=== PATIENT | female | born 1940 | race Caucasian/White ===

== ENCOUNTER 2016-06-28 09:37 | Emergency (ER) | payer MEDICARE, OTHER ==
[2016-06-28] MEDS ORDERED: DUONEB 0.5-3 MG/3 ml Neb IH ONE (09:39)
[2016-06-28] MEDS ORDERED: Sodium Chloride 0.9% 1000 ML 1,000 ML IV SCH (09:45)
--- NOTE | 2016-06-28 09:48 | ERPHSYRPT ---
- History of Present Illness Time Seen by Provider: 06/28/16 09:37 Source: patient Exam Limitations: clinical condition Physician History: PATIENT WITH HISTORY OF COPD,COMPLAINS OF PROGRESSIVE DYSPNEA, PRODUCTIVE COUGH , MARKED EXCERTIONAL DYSPNEA AND CHEST PAIN FOR THE PAST 3 DAYS. PATIENT DENIES CHEST PAIN UPON ARRIVAL. DENIES FEVER OR CHILLS. Timing/Duration: day(s) Activities at Onset: activity Severity of Dyspnea-Max: severe Severity of Dyspnea-Current: severe Possible Cause: occasional episodes Modifying Factors: Improves With: activity, coughing Associated Symptoms: cough, chest pain/discomfort, productive cough International travel in last 2 weeks: No Allergies/Adverse Reactions: Sulfa (Sulfonamide Antibiotics) Allergy (Intermediate, Verified 06/28/16 09:59) Home Medications: Aspirin 81 gm Chew [Baby Aspirin 81 mg Chew] 81 mg PO DAILY 06/28/16 [ History] Duloxetine HCl 30 mg [Cymbalta 30 MG Capsule] 30 mg PO DAILY 06/28/16 [ History] Isosorbide Mononitrate 30 mg [Imdur 30 MG] 30 mg PO DAILY 06/28/16 [History ] Metoprolol Succinate 50 mg [Toprol Xl 50 MG] 50 mg PO BID 06/28/16 [ History] PANTOPRAZOLE 40 mg Tablet [Protonix 40MG Tablet] 40 mg PO DAILY 06/28/16 [ History] - Review of Systems Constitutional: No Fever, No Chills Eyes: No Symptoms Ears, Nose, & Throat: No Symptoms Respiratory: Cough, Dyspnea, Dyspnea on Exertion (BELCHER) Cardiac: Chest Pain, No Edema, No Syncope Abdominal/Gastrointestinal: No Symptoms, No Abdominal Pain, No Nausea, No Vomiting, No Diarrhea Genitourinary Symptoms: No Symptoms, No Dysuria Musculoskeletal: No Symptoms, No Back Pain, No Neck Pain Skin: No Symptoms, No Rash Neurological: No Dizziness, No Focal Weakness, No Sensory Changes Psychological: No Symptoms Endocrine: No Symptoms All Other Systems: Reviewed and Negative - Nursing Vital Signs Nursing Vital Signs: Initial Vital Signs Temperature 98.1 F Temperature Source Axillary Pulse Rate 92 Respiratory Rate 32 Blood Pressure [] 153/89 Pain Intensity 0 - Physical Exam General Appearance: severe distress, alert Eye Exam: PERRL/EOMI Neck Exam: normal inspection, supple Respiratory Exam: diminished breath sounds Cardiovascular/Chest Exam: normal heart sounds, regular rate/rhythm Abdominal/Gastrointestinal Exam: soft, normal bowel sounds Extremity Exam: non-tender, normal range of motion, pedal edema (+1) Peripheral Pulses Exam: carotid (R): 2+, carotid (L): 2+, femoral (R): 2+, femoral (L): 2+, dorsalis-pedis (R): 2+, dorsalis-pedis (L): 2+ Neurologic Exam: alert, oriented x 3 Skin Exam: normal color, warm Lymphatic Exam: adenopathy SpO2: 88 Oxygen Delivery: Room Air - Course EKG Interpreted by Me: RATE, NORMAL AXIS, Non-specific ST Changes (LATERALLY) - Radiology Exams Chest X-ray Interpretation: Discussed w/ radiologist (RIGHT INFRAHILAR INFILTRATES) - CT Exams Chest CT Interpretation: Discussed w/radiologist (DIFFUSE PULMONARY EMBOLI) Ordered Tests: Active Orders 24 hr Category Date Time Status EKG-ER Only STAT Care 06/28/16 09:39 Active IV Insertion-2nd Peripheral STAT Care 06/28/16 12:02 Active Oxygen-ED Only NON-REBREATHER 100% Care 06/28/16 09:39 Active CHEST 1 VIEW (PORTABLE) Routine Exams 06/28/16 10:01 Completed CHEST WITH CONTRAST [CT] Stat Exams 06/28/16 10:44 Completed ARTERIAL BLOOD GASES Urgent Lab 06/28/16 10:00 Completed BLOOD CULTURE Stat Lab 06/28/16 09:45 Received CBC W DIFF Stat Lab 06/28/16 09:45 Completed CMP Stat Lab 06/28/16 09:45 Completed D-DIMER QUANTITATION Stat Lab 06/28/16 09:45 Completed Lactic Acid Urgent Lab 06/28/16 10:00 Completed MAGNESIUM Stat Lab 06/28/16 09:45 Completed Manual Differential NC Stat Lab 06/28/16 09:45 Completed NT PRO BNP Stat Lab 06/28/16 09:45 Completed TROPONIN Stat Lab 06/28/16 09:45 Completed Respiratory Nebulizer CONTINUOUS RT 06/28/16 09:54 Completed Respiratory Nebulizer STAT RT 06/28/16 09:41 Completed Medication Summary Generic Name Dose Route Start Last Admin Trade Name Freq PRN Reason Stop Dose Admin Sodium Chloride 1,000 mls @ 20 mls/hr 06/28/16 09:45 06/28/16 10:12 Sodium Chloride 0.9% 1000 Ml IV 07/28/16 09:44 20 mls/hr .Q24H ARASELI Administration Ceftriaxone Sodium/Dextrose 50 mls @ 100 mls/hr 06/28/16 10:45 06/28/16 10:51 Rocephin 2 Gm-D5w 50ml Bag IV 07/28/16 10:44 100 mls/hr Q24H ARASELI Administration Discontinued Medications Generic Name Dose Route Start Last Admin Trade Name Yumiko PRN Reason Stop Dose Admin Albuterol Sulfate 10 mg 06/28/16 09:55 06/28/16 09:56 Proventil Solution 2.5 Mg/0.5 Ml IH 06/28/16 09:56 10 mg STAT ONE Administration Albuterol/Ipratropium 3 ml 06/28/16 09:39 06/28/16 09:51 Duoneb 0.5-3 Mg/3 Ml Neb IH 06/28/16 09:40 3 ml STAT ONE Administration Enoxaparin Sodium 100 mg 06/28/16 12:04 06/28/16 12:33 Enoxaparin Sodium SQ 06/28/16 12:05 100 mg STAT ONE Administration Enoxaparin Sodium Confirm 06/28/16 12:08 Enoxaparin Sodium Administered 06/28/16 12:09 Dose 120 mg SQ .STK-MED ONE Furosemide 40 mg 06/28/16 12:12 06/28/16 12:33 Lasix 40 Mg/4 Ml IV 06/28/16 12:13 40 mg STAT ONE Administration Furosemide Confirm 06/28/16 12:19 Lasix 40 Mg/4 Ml Administered 06/28/16 12:20 Dose 40 mg .ROUTE .STK-MED ONE Azithromycin 250 mls @ 125 mls/hr 06/28/16 10:39 06/28/16 11:37 Zithromax 500 Mg/ 250 Ml Nacl Premix IV 06/28/16 12:38 125 mls/hr STAT ONE Administration Azithromycin Confirm 06/28/16 10:44 Zithromax 500 Mg/ 250 Ml Nacl Premix Administered 06/28/16 10:45 Dose 250 mls @ ud IV .STK-MED ONE Ceftriaxone Sodium/Dextrose Confirm 06/28/16 10:44 Rocephin 2 Gm-D5w 50ml Bag Administered 06/28/16 10:45 Dose 50 mls @ ud IV .STK-MED ONE Methylprednisolone Sodium Succinate 125 mg 06/28/16 11:05 06/28/16 11:37 Solu-Medrol 125 Mg IV 06/28/16 11:06 125 mg STAT ONE Administration Methylprednisolone Sodium Succinate Confirm 06/28/16 11:25 Solu-Medrol 125 Mg Administered 06/28/16 11:26 Dose 125 mg .ROUTE .STK-MED ONE Lab/Rad Data: Laboratory Result Diagrams 06/28/16 09:45 06/28/16 09:45 Laboratory Results 06/28/16 06/28/16 06/28/16 Range/Units 10:00 09:45 09:45 WBC (4.0-10.5) K/mm3 RBC (4.1-5.4) M/mm3 Hgb (12.0-16.0) gm/dl Hct (35-47) % MCV (78-100) fl MCH (26-32) pg MCHC (32-36) g/dl RDW (11.5-14.0) % Plt Count (150-450) K/mm3 MPV (6-9.5) fl Segmented Neutrophils (36.0-66.0) % Lymphocytes (Manual) (24-44) % Monocytes (Manual) (0.0-12.0) % Differential Comment Platelet Estimate (NORMAL) Polychromasia Hypochromasia Poikilocytosis Anisocytosis Microcytosis D-Dimer 2.421 H* (0.00-0.49) mg/L Puncture Site LEFT RADIAL pCO2 34 L (35-45) mmHg pO2 65 L (75-100) mmHg Base Excess -3.2 L (-2.0-2.0) O2 Saturation 91.4 L (94-100) g/dF ABG pH 7.40 (7.35-7.45) ABG HCO3 21.1 L (22-28) ABG O2 Sat (Measured) 93.9 L (95-100) % Claude Test YES A-a Gradient 178 a/A Ratio 0.27 Hemoglobin 8.7 Carboxyhemoglobin 1.6 (0.0-6.9) % THgb Methemoglobin 1.1 L (1.4-1.5) % Temperature 37.0 C POC O2 Flow Rate 40 % Sodium 142 (136-145) mEq/L Potassium 3.0 L 3.4 L (3.5-5.1) mEq/L Chloride 108 H (98-107) mEq/L Carbon Dioxide 17.8 L (21-32) mEq/L Anion Gap 19.9 H (5-15) MEQ/L BUN 14 (9-20) mg/dL Creatinine 0.98 (0.55-1.30) mg/dl Estimated GFR 59 ML/MIN Glucose 140 H (70-110) MG/DL Lactic Acid 2.9 H (0.4-2.0) Calcium 8.4 L (8.5-10.1) mg/dL Magnesium 1.7 L (1.8-2.4) mg/dL Total Bilirubin 0.5 (0.2-1.0) mg/dL AST 32 (15-37) U/L ALT 13 (12-78) U/L Alkaline Phosphatase 123 H (46-116) U/L Troponin I 0.047 (0.000-0.056) ng/ml NT-Pro-B Natriuret Pep 4544 H (0-125) pg/ml Serum Total Protein 7.0 (6.4-8.2) gm/dL Albumin 3.2 L (3.4-5.0) g/dL 06/28/16 Range/Units 09:45 WBC 9.1 (4.0-10.5) K/mm3 RBC 4.34 (4.1-5.4) M/mm3 Hgb 8.8 L (12.0-16.0) gm/dl Hct 31.5 L (35-47) % MCV 72.6 L (78-100) fl MCH 20.2 L (26-32) pg MCHC 27.9 L (32-36) g/dl RDW 20.6 H (11.5-14.0) % Plt Count 255 (150-450) K/mm3 MPV 11.0 H (6-9.5) fl Segmented Neutrophils 70 H (36.0-66.0) % Lymphocytes (Manual) 23 L (24-44) % Monocytes (Manual) 7 (0.0-12.0) % Differential Comment ABNORMAL Platelet Estimate NORMAL (NORMAL) Polychromasia 2+ Hypochromasia 2+ Poikilocytosis 1+ Anisocytosis 1+ Microcytosis 1+ D-Dimer (0.00-0.49) mg/L Puncture Site pCO2 (35-45) mmHg pO2 (75-100) mmHg Base Excess (-2.0-2.0) O2 Saturation (94-100) g/dF ABG pH (7.35-7.45) ABG HCO3 (22-28) ABG O2 Sat (Measured) (95-100) % Claude Test A-a Gradient a/A Ratio Hemoglobin Carboxyhemoglobin (0.0-6.9) % THgb Methemoglobin (1.4-1.5) % Temperature C POC O2 Flow Rate % Sodium (136-145) mEq/L Potassium (3.5-5.1) mEq/L Chloride (98-107) mEq/L Carbon Dioxide (21-32) mEq/L Anion Gap (5-15) MEQ/L BUN (9-20) mg/dL Creatinine (0.55-1.30) mg/dl Estimated GFR ML/MIN Glucose (70-110) MG/DL Lactic Acid (0.4-2.0) Calcium (8.5-10.1) mg/dL Magnesium (1.8-2.4) mg/dL Total Bilirubin (0.2-1.0) mg/dL AST (15-37) U/L ALT (12-78) U/L Alkaline Phosphatase (46-116) U/L Troponin I (0.000-0.056) ng/ml NT-Pro-B Natriuret Pep (0-125) pg/ml Serum Total Protein (6.4-8.2) gm/dL Albumin (3.4-5.0) g/dL - Progress Progress: re-examined Progress Note: 06/28/16 11:08 PATIENT GIVEN DUONEB FOLLOWED BY CONTINUOUS ALBUTEROL 10MG OVER 1 HOUR. SOLUMEDROL 125MG IV, AFTER 2 SETS OF BLOOD CULTURES ROCEPHIN 1GM, ZITHROMAX 500MG IVPB DDIMER 2.4, CHEST CT PE PROTOCOL 06/28/16 12:15 PATIENT ADMINISTERED LOVENOX 100MG IM, LASIX 40MG IV BURNHAM CATHETER INSERTION Blood Culture(s) Obtained: Yes Antibiotics given: Yes (ZITHROMAX 500MG/ROCEPHIN 2GM IVPB) Discussed with Dr.: Other (DISCUSSED WITH DR SRIVASTAVA AT [address] [facility] [facility] [facility] - Departure Departure Disposition: Transfer Clinical Impression: PULMONARY EMBOLISM, EXACERBATION COPD Condition: Stable Critical Care Time: No Referrals: MAGGIE SRIVASTAVA [Primary Care Provider] -
[2016-06-28] MEDS ORDERED: PROVENTIL Solution 2.5 MG/0.5 ML IH ONE (09:55)
[2016-06-28 10:06] LABS: A-aADO2 178; ARTERIAL BLD GAS O2 SATURATION 93.9 % (95-100); ARTERIAL BLOOD GAS BASE EXCESS -3.2 (-2.0-2.0); ARTERIAL BLOOD GAS FIO2 40 %; ARTERIAL BLOOD GAS PO2 65 mmHg (75-100); Lactic Acid 2.9 (0.4-2.0)
[2016-06-28 10:07] LABS: ALLEN TEST OK? YES
[2016-06-28 10:11] LABS: Mean Cell Volume 72.6 fl (78-100); Platelet Count 255 K/mm3 (150-450); Red Blood Count 4.34 M/mm3 (4.1-5.4); Red Cell Distribution Width 20.6 % (11.5-14.0); White Blood Count 9.1 K/mm3 (4.0-10.5)
[2016-06-28 10:13] LABS: Mean Corpuscular Hemoglobin 20.2 pg (26-32)
--- NOTE | 2016-06-28 10:26 | XRAY ---
Indication: Dyspnea and cough. Comparison: None Portable chest underinflated accentuating the cardiopulmonary structures. Right hemidiaphragm elevation. Subtle asymmetric right infrahilar infiltrate versus atelectasis. No consolidation or large effusion. Heart is not enlarged for AP portable technique. Bony thorax intact with mild osteopenia and minimal degenerative changes. Impression: Underinflated lungs with right hemidiaphragm elevation and right infrahilar infiltrate/atelectasis. Correlate clinically.
[2016-06-28] MEDS ORDERED: Zithromax 500 MG/ 250 ML NaCl Premix 250 ML IV ONE ×2 (10:39→10:44)
[2016-06-28 10:43] LABS: ALBUMIN 3.2 g/dL (3.4-5.0); ANION GAP 19.9 MEQ/L (5-15); BILIRUBIN,TOTAL 0.5 mg/dL (0.2-1.0); Carbon Dioxide 17.8 mEq/L (21-32); MAGNESIUM 1.7 mg/dL (1.8-2.4); Potassium 3.4 mEq/L (3.5-5.1); TROPONIN 0.047 ng/ml (0.000-0.056)
[2016-06-28] MEDS ORDERED: ROCEPHIN 2 Gm-D5w 50ML BAG** 50 ML IV ONE (10:44)
[2016-06-28] MEDS ORDERED: ROCEPHIN 2 Gm-D5w 50ML BAG** 50 ML IV SCH (10:45)
[2016-06-28 10:57] LABS: Platelet Estimate NORMAL (NORMAL); Total Cells Counted 100
[2016-06-28 10:58] LABS: ANISOCYTOSIS 1+; Hypochromia 2+; Microcytosis 1+; Poikilocytosis 1+; Polychromasia 2+
[2016-06-28] MEDS ORDERED: solu-MEDROL 125 MG IV ONE (11:05)
[2016-06-28] MEDS ORDERED: solu-MEDROL 125 MG ONE (11:25)
[2016-06-28] MEDS ORDERED: ENOXAPARIN SODIUM SQ ONE ×2 (12:04→12:08)
[2016-06-28] MEDS ORDERED: Lasix 40 MG/4 ML IV ONE (12:12)
--- NOTE | 2016-06-28 12:12 | XRAY ---
Indication: Short of breath and elevated d-dimer. Multiple contiguous axial images obtained through the chest using 80 cc Isovue 370 contrast and PE protocol. Comparison: None There is good opacification of the pulmonary arteries. Scattered near occluding pulmonary emboli seen in the right upper, right middle, and right lower lobes. Smaller nonoccluding pulmonary emboli seen in the left upper, lingular, and left lower lobe branches. Heart is not enlarged. Aorta minimally calcified without aneurysm/dissection. Scattered small calcified/noncalcified mediastinal nodes and a few bilateral hilar calcified nodes. Moderate-sized hiatal hernia with partial intrathoracic stomach. Examination of the lung parenchyma demonstrates minimal bilateral dependent atelectasis and a few scattered bilateral calcified granulomas. No suspicious pulmonary mass, infiltrate, consolidation, or effusion. Bony thorax intact with mild spinal degenerative changes. Limited upper abdomen demonstrates fatty liver and 2 hepatic cysts, the larger measuring 2 cm. Impression: 1. Diffuse bilateral pulmonary emboli, right greater than left. No distal infarct. 2. Incidental hiatal hernia, fatty liver, hepatic cysts, and evidence for old granulomatous disease. Comment: Telephone report was given to the ordering clinician Dr. Tracey at 1200 hrs. on June 28, 2016. CT DI 28.02
[2016-06-28] MEDS ORDERED: Lasix 40 MG/4 ML ONE (12:19)
[2016-06-28 13:18] VITALS: BP 141/73; PULSE 88; O2SAT 93
[2016-06-28 13:44] LABS: COMPLETE URINE MICROSCOPIC? YES; Collection Type CLEAN CATCH; Ph 6.5 (5-6)
[2016-06-28 14:10] LABS: Bacteria FEW /HPF (NEGATIVE); Epithelial Cells FEW /HPF (FEW); WBC 0-2 /HPF (0-5)
== END 2016-06-28 14:05 | disposition short-term general hospital (02) ==
LOC: ED 09:37
DX: I26.99 Other pulmonary embolism without acute cor pulmonale (principal); J44.1 Chronic obstructive pulmonary disease with (acute) exacerbation; R07.89 Other chest pain
CPT/HCPCS: 36000; 36415; 36600; 51702; 71010; 71260; 80053; 81000; 82375; 82803; 83605; 83735; 83880; 84484; 85025; 85379; 87040; 93005; 93041; 94640; 96360; 96361; 96365; 96366; 96367; 96372; 96374; 96375; 99285; J0456; J0696; J1650; J1940; J2930

== ENCOUNTER 2023-05-25 19:11 | Emergency (ER) | payer MEDICARE, OTHER ==
[2023-05-25] MEDS ORDERED: SUBLIMAZE 100 MCG/2 ML IV ONE ×2 (19:19→21:08)
[2023-05-25] MEDS ORDERED: Sodium Chloride 0.9% 1000 ML 1,000 ML IV SCH (19:30)
[2023-05-25 19:35] VITALS: TEMP 97.8
[2023-05-25 19:39] LABS: Absolute Neutrophil Ct (ANC) 5.47 x10^3/uL (1.4-6.9); Basophil (Absolute #) 0.08 x10^3/uL (0-0.4); Eosinophil % 3.3 % (0.00-5.0); Eosinophil (Absolute #) 0.26 x10^3/uL (0-0.5); Hematocrit 36.4 % (35-47); Hemoglobin 10.3 g/dL (12.0-16.0); IMMATURE GRAN # 0.03 x10^3u/L (0.00-0.03); IMMATURE GRAN % 0.4 % (0.00-0.4); Lymphocyte (Absolute #) 1.24 x10^3/uL (1.0-4.6); Lymphocytes % 15.8 % (24.0-44.0); Mean Corpuscular Hemoglobin 23.2 pg (26-32); Mean Corpuscular Hgb Concent. 28.3 g/dL (32-36); Mean Platelet Volume 10.2 fL (7.5-11.0); Monocyte (Absolute #) 0.75 x10^3/uL (0.0-1.3); Monocytes % 9.6 % (0.0-12.0); Neutrophil % 69.9 % (36.0-66.0); Platelet Count 326 x10^3/uL (150-450); Red Blood Count 4.44 x10^6/uL (4.1-5.4); Red Cell Distribution Width 18.6 % (11.5-14.0); White Blood Count 7.8 x10^3/uL (4.0-10.5)
[2023-05-25] MEDS ORDERED: Sodium Chloride 0.9% 1000 ML 1,000 ML ONE (19:48)
[2023-05-25] MEDS ORDERED: SUBLIMAZE 100 MCG/2 ML ONE (19:48)
[2023-05-25 19:57] LABS: ANION GAP 10.1 MEQ/L (5-15); BILIRUBIN,TOTAL 0.3 mg/dL (0.2-1.3); Calcium 8.1 mg/dL (8.4-10.2); Creatinine 1 0.99 mg/dL (0.52-1.04); EST GLOMERULAR FILTRATION RATE 57.3 ML/MIN; Potassium 4.2 mmol/L (3.5-5.1); Total Protein 6.7 g/dL (6.3-8.2)
[2023-05-25 19:59] LABS: D-DIMER QUANTITATIVE 0.47 mg/L (0.0-0.50); INR 1.05 (0.8-3.0); PROTIME 11.4 SECONDS (9.4-12.5); PTT 26.2 SECONDS (25.1-36.5)
[2023-05-25 20:34] LABS: Slide Review 1 YES
[2023-05-25 21:22] VITALS: O2SAT 98
--- NOTE | 2023-05-25 21:28 | ERPHSYRPT ---
- History of Present Illness Time Seen by Provider: 05/25/23 19:45 Historian: patient, family Exam Limitations: no limitations Patient Subjective Stated Complaint: pt states that she fell either Monday or Monday night while she was getting up to go the the bathroom, unsure why she fell and unsure if she hit her head. states she might have "passed out" but is unsure. denies LOC and family report that she didn't lay on floor for very long because a child that was visiting heard her fall. pt reports mid sternal chest pain since time of fall that was intermittent at first then more continuous today and worsening in intensity today. pt also complained of a little shortness of breath. Triage Nursing Assessment: pt brought to room 3 via wheelchair and transfered into bed with assist of 2 sraff after standing on scale for weight acquisition. pt is alert and oriented times three, hard of hearing, able to move all extremities, able to speak in complete sentences, and with resp even and slightly labored with audible wheezes without auscultation. anterior bilat lung sounds clear and diminished throughout. no edema or JVD noted. bilat radial and pedal pulses palpable and equal. denies n/v, diarrhea, constipation, lightheadedness, dizziness, change to appetite, difficulty with urination or bowel elimination. pt complains of midsternal chest pain that she is unable to describe but rates 8/10 and reports has been constant today. Physician History: Patient is an 83-year-old white female who fell several days ago she is uncertain as to why she fell she thinks she was unconscious and may have passed out. She was heard to fall by family members she went to her immediately she complains of severe pain in the left upper chest area worse with a deep breath or movement or palpation. She thinks she may have hit her head. Timing/Duration: day(s) (5 days ago) Quality: throbbing Location: other Chest Pain Radiation: no radiation Severity of Pain-Max: moderate Severity of Pain-Current: moderate Modifying Factors: Improves With: breathing, movement, palpation (Left upper chest) Associated Symptoms: hurts to breathe Prior Chest Pain/Cardiac Workup: no prior chest pain Nitro Today/Relief: no nitro taken today Aspirin Treatment Today: no aspirin today Allergies/Adverse Reactions: Sulfa (Sulfonamide Antibiotics) Allergy (Intermediate, Verified 05/25/23 19:12) Home Medications: Metoprolol Succinate 50 mg [Toprol Xl 50 MG] 50 mg PO BID 06/28/16 [History] PANTOPRAZOLE 40 mg Tablet [Protonix 40MG Tablet] 40 mg PO BID 06/28/16 [History] Albuterol Sulfate [Proair Respiclick] 90 mcg IH QID 05/25/23 [History] Dabigatran Etexilate Mesylate [Pradaxa] 150 mg PO BID 05/25/23 [History] Escitalopram Oxalate [Lexapro] 10 mg PO DAILY 05/25/23 [History] Furosemide 20 mg [Lasix 20 mg] 20 mg PO DAILY 05/25/23 [History] Glucosamine Sulfate Dipot Chlr [Glucosamine] 1.5 tab PO DAILY 05/25/23 [History] Isosorbide Mononitrate 6 mg PO DAILY 05/25/23 [History] Magnesium Oxide [Magnesium] 1 tab PO DAILY 05/25/23 [History] Mirabegron [Myrbetriq] 50 mg PO DAILY 05/25/23 [History] Multivit-Min/Iron/FA/Vit K/Lut [Centrum Women 50 Plus Minis Tb] 1 each PO DAILY 05/25/23 [History] Symbicort 1 puff IH BID 05/25/23 [History] Vit A/Vit C/Vit E/Zinc/Copper [Preservision Areds Tablet] 1 each PO BID 05/25/23 [History] Hx Tetanus, Diphtheria Vaccination/Date Given: No Hx Influenza Vaccination/Date Given: Yes Hx Pneumococcal Vaccination/Date Given: Yes Immunizations Up to Date: No Travel Risk - International Travel Have you traveled outside of the country in past 3 weeks: No - Coronavirus Screening Are you exhibiting any of the following symptoms?: No Close contact with a COVID-19 positive Pt in past 14-21 Days: No - Vaccine Status Have you recieved a 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: [employer] - Vaccination Dates Date of 2cond Vaccination (if applicable): unknown - Review of Systems Constitutional: No Fever, No Chills Eyes: No Symptoms Ears, Nose, & Throat: No Symptoms Respiratory: No Cough, No Dyspnea Cardiac: Chest Pain, No Edema, No Syncope Abdominal/Gastrointestinal: No Abdominal Pain, No Nausea, No Vomiting, No Diarrhea Genitourinary Symptoms: No Dysuria Musculoskeletal: No Back Pain, No Neck Pain Skin: No Rash Neurological: No Dizziness, No Focal Weakness, No Sensory Changes Psychological: No Symptoms Endocrine: No Symptoms All Other Systems: Reviewed and Negative - Past Medical History Pertinent Past Medical History: Yes Neurological History: No Pertinent History ENT History: No Pertinent History Cardiac History: Congestive Heart Failure, Hypertension Respiratory History: COPD Endocrine Medical History: No Pertinent History Musculoskeletal History: No Pertinent History GI Medical History: GERD History: Other Psycho-Social History: Depression Female Reproductive Disorders: No Pertinent History Other Medical History: kidney stones - Past Surgical History Past Surgical History: Yes Neuro Surgical History: No Pertinent History Cardiac: No Pertinent History Respiratory: No Pertinent History Gastrointestinal: Appendectomy, Cholecystectomy Genitourinary: Other Musculoskeletal: No Pertinent History Female Surgical History: Hysterectomy Other Surgical History: kidney stones - Social History Smoking Status: Never smoker Exposure to second hand smoke: Yes Drug Use: none Patient Lives Alone: No - Female History Hx Now: No (N) - Nursing Vital Signs Nursing Vital Signs: Initial Vital Signs Temperature 97.8 F 05/25/23 19:12 Pulse Rate 89 05/25/23 19:12 Respiratory Rate 23 05/25/23 19:12 Blood Pressure 134/56 05/25/23 19:12 O2 Sat by Pulse Oximetry 93 L 05/25/23 19:12 Pain Scale Pain Intensity 5 - Physical Exam General Appearance: no apparent distress, alert Eye Exam: PERRL/EOMI, eyes nml inspection Ears, Nose, Throat Exam: normal ENT inspection, moist mucous membranes Neck Exam: normal inspection, non-tender, supple, full range of motion Respiratory Exam: normal breath sounds, chest tenderness (Left upper chest very tender to palpation), lungs clear, No respiratory distress Cardiovascular Exam: regular rate/rhythm, normal heart sounds Gastrointestinal/Abdomen Exam: soft, No tenderness, No mass Back Exam: normal inspection, No CVA tenderness, No vertebral tenderness Extremity Exam: normal inspection, normal range of motion Neurologic Exam: alert, oriented x 3, cooperative, normal mood/affect, sensation nml, No motor deficits Skin Exam: normal color, warm, dry SpO2: 98 - Course Nursing assessment & vital signs reviewed: Yes EKG Interpreted by Me: RATE (85), Sinus Rhythm, NORMAL AXIS, NORMAL INTERVALS, NORMAL QRS, NORMAL ST-T - CT Exams Head CT Interpretation: Tele-radiologist Report Chest CT Interpretation: Tele-radiologist Report Ordered Tests: Active Orders 24 hr Category Date Time Status EKG-ER Only STAT Care 05/25/23 19:19 Active IV Insertion STAT Care 05/25/23 19:19 Active CHEST WITHOUT CONTRAST [CT] Routine Exams 05/25/23 20:35 Taken HEAD WITHOUT CONTRAST [CT] Stat Exams 05/25/23 20:19 Taken CBC W DIFF Stat Lab 05/25/23 19:30 Completed CK-Creatinine Phosphokinase Stat Lab 05/25/23 19:30 Completed CMP Stat Lab 05/25/23 19:30 Completed D-DIMER QUANTITATIVE Stat Lab 05/25/23 19:30 Completed Lactic Acid Stat Lab 05/25/23 19:41 Completed Lactic Acid Stat Lab 05/25/23 21:46 Received NT PRO BNPII Stat Lab 05/25/23 19:30 Completed PROTIME WITH INR Stat Lab 05/25/23 19:30 Completed PTT Stat Lab 05/25/23 19:30 Completed TROPONIN Q4H Lab 05/25/23 19:30 Completed TROPONIN Q4H Lab 05/25/23 23:30 Ordered TROPONIN Q4H Lab 05/26/23 03:30 Ordered UA W/RFX UR CULTURE Stat Lab 05/25/23 19:21 Ordered Medication Summary Generic Name Dose Route Start Last Admin Trade Name Freq PRN Reason Stop Dose Admin Sodium Chloride 1,000 mls @ 100 mls/hr 05/25/23 19:30 05/25/23 19:52 Sodium Chloride 0.9% 1000 Ml IV 06/24/23 19:29 100 mls/hr .Q10H ARASELI Administration Discontinued Medications Generic Name Dose Route Start Last Admin Trade Name Freq PRN Reason Stop Dose Admin Fentanyl Citrate 50 mcg 05/25/23 19:19 05/25/23 19:57 Fentanyl Citrate 100 Mcg/2 Ml* Vial IV 05/25/23 19:20 50 mcg STAT ONE Administration Fentanyl Citrate Confirm 05/25/23 19:48 Fentanyl Citrate 100 Mcg/2 Ml* Vial Administered 05/25/23 19:49 Dose 100 mcg .ROUTE .STK-MED ONE Fentanyl Citrate 50 mcg 05/25/23 21:08 05/25/23 21:34 Fentanyl Citrate 100 Mcg/2 Ml* Vial IV 05/25/23 21:09 Not Given STAT ONE Lab/Rad Data: Laboratory Result Diagrams 05/25/23 19:30 05/25/23 19:30 Laboratory Results 05/25/23 05/25/23 05/25/23 Range/Units 19:41 19:30 19:30 WBC (4.0-10.5) x10^3/uL RBC (4.1-5.4) x10^6/uL Hgb (12.0-16.0) g/dL Hct (35-47) % MCV (78-100) fL MCH (26-32) pg MCHC (32-36) g/dL RDW (11.5-14.0) % Plt Count (150-450) x10^3/uL MPV (7.5-11.0) fL Gran % (36.0-66.0) % Immature Gran % (Auto) (0.00-0.4) % Nucleat RBC Rel Count (0.00-0.1) % Eos # (Auto) (0-0.5) x10^3/uL Immature Gran # (Auto) (0.00-0.03) x10^3u/L Absolute Lymphs (auto) (1.0-4.6) x10^3/uL Absolute Monos (auto) (0.0-1.3) x10^3/uL Absolute Nucleated RBC (0.00-0.01) x10^3u/L Lymphocytes % (24.0-44.0) % Monocytes % (0.0-12.0) % Eosinophils % (0.00-5.0) % Basophils % (0.0-0.4) % Absolute Granulocytes (1.4-6.9) x10^3/uL Basophils # (0-0.4) x10^3/uL PT (9.4-12.5) SECONDS INR (0.8-3.0) APTT (25.1-36.5) SECONDS D-Dimer (0.0-0.50) mg/L Sodium (137-145) mmol/L Potassium (3.5-5.1) mmol/L Chloride (98-107) mmol/L Carbon Dioxide (22-30) mmol/L Anion Gap (5-15) MEQ/L BUN (7-17) mg/dL Creatinine (0.52-1.04) mg/dL Estimated GFR ML/MIN Glucose (74-106) mg/dL Lactic Acid 2.6 H (0.4-2.0) Calcium (8.4-10.2) mg/dL Total Bilirubin (0.2-1.3) mg/dL AST (14-36) U/L ALT (0-35) U/L Alkaline Phosphatase (38-126) U/L Creatine Kinase (30-135) U/L Troponin I < 0.012 (0.000-0.034) ng/mL NT-Pro-B Natriuret Pep 192 (<300) pg/mL Serum Total Protein (6.3-8.2) g/dL Albumin (3.5-5.0) g/dL Slides for Path Review 05/25/23 05/25/23 05/25/23 Range/Units 19:30 19:30 19:30 WBC 7.8 (4.0-10.5) x10^3/uL RBC 4.44 (4.1-5.4) x10^6/uL Hgb 10.3 L (12.0-16.0) g/dL Hct 36.4 (35-47) % MCV 82.0 (78-100) fL MCH 23.2 L (26-32) pg MCHC 28.3 L (32-36) g/dL RDW 18.6 H (11.5-14.0) % Plt Count 326 (150-450) x10^3/uL MPV 10.2 (7.5-11.0) fL Gran % 69.9 H (36.0-66.0) % Immature Gran % (Auto) 0.4 (0.00-0.4) % Nucleat RBC Rel Count 0.0 (0.00-0.1) % Eos # (Auto) 0.26 (0-0.5) x10^3/uL Immature Gran # (Auto) 0.03 (0.00-0.03) x10^3u/L Absolute Lymphs (auto) 1.24 (1.0-4.6) x10^3/uL Absolute Monos (auto) 0.75 (0.0-1.3) x10^3/uL Absolute Nucleated RBC 0.00 (0.00-0.01) x10^3u/L Lymphocytes % 15.8 L (24.0-44.0) % Monocytes % 9.6 (0.0-12.0) % Eosinophils % 3.3 (0.00-5.0) % Basophils % 1.0 (0.0-0.4) % Absolute Granulocytes 5.47 (1.4-6.9) x10^3/uL Basophils # 0.08 (0-0.4) x10^3/uL PT 11.4 (9.4-12.5) SECONDS INR 1.05 (0.8-3.0) APTT 26.2 (25.1-36.5) SECONDS D-Dimer 0.47 (0.0-0.50) mg/L Sodium 136 L (137-145) mmol/L Potassium 4.2 (3.5-5.1) mmol/L Chloride 104 (98-107) mmol/L Carbon Dioxide 26 (22-30) mmol/L Anion Gap 10.1 (5-15) MEQ/L BUN 20 H (7-17) mg/dL Creatinine 0.99 (0.52-1.04) mg/dL Estimated GFR 57.3 ML/MIN Glucose 116 H (74-106) mg/dL Lactic Acid (0.4-2.0) Calcium 8.1 L (8.4-10.2) mg/dL Total Bilirubin 0.30 (0.2-1.3) mg/dL AST 40 H (14-36) U/L ALT 16 (0-35) U/L Alkaline Phosphatase 103 (38-126) U/L Creatine Kinase 32 (30-135) U/L Troponin I (0.000-0.034) ng/mL NT-Pro-B Natriuret Pep (<300) pg/mL Serum Total Protein 6.7 (6.3-8.2) g/dL Albumin 2.1 L (3.5-5.0) g/dL Slides for Path Review YES - Progress Progress: improved Air Movement: good Blood Culture(s) Obtained: No Antibiotics given: No Medical Desision Making - Independent Historian Additional History obtained from: Family - Diagnostic Testing Diagnostic test were ordered, analyzed, and reviewed by me: Yes Radiological Interpretation: Reviewed by me - Risk of complications Low Risk: Low risk of morbidity from additional dx testing or treatment - Departure Departure Disposition: Home Clinical Impression: Non-cardiac chest pain Condition: Stable Critical Care Time: No Referrals: MAGGIE SRIVASTAVA [Primary Care Provider] - Follow up/PCP as directed Instructions: Chest Pain (DC) Prescriptions: Hydrocodone/Acetaminophen [Hydrocodone-Acetamin 5-325 mg] 1 tab PO Q6HPRN PRN 3 Days #12 tablet MDD 4 PRN Reason: Pain
[2023-05-25] MEDS ORDERED: NORCO 5/325 MG PO ONE (22:02)
[2023-05-25] MEDS ORDERED: NORCO 5/325 MG ONE (22:04)
[2023-05-25 22:19] VITALS: BP 138/74; PULSE 78; RESP 23
--- NOTE | 2023-05-26 02:56 | XRAY ---
CLINICAL HISTORY:FALL- CHEST PAIN COMPARISON:None. TECHNIQUE:Contiguous axial CT images of the chest were acquired without administration of intravenous contrast. Coronal and sagittal reconstructions were obtained and submitted for interpretation. FINDINGS: Large hiatus hernia containing the gastric fundus and body. No gastric volvulus or obstruction. No pulmonary masses, consolidations or cavitary changes. Right upper and bilateral lower lobes as well as lingular calcified pulmonary nodules with calcified bilateral hilar and sub-carinal lymph nodes. Right upper lobe atelectatic plates and patchy parenchymal veiling. Bilateral lower lobes and lingula thick atelectatic plates with surrounding patchy parenchymal veiling. Patent tracheo-bronchial tree. No pleural or pericardial collections. Normal cardiac size and configuration. Mildly dilated pulmonary trunk (3.1 cm in diameter). Thoracic aortic atheromatous calcifications were noted. Thoracolumbar spondylodegenerative changes with minimal ventral wedging of D11 and D12 vertebral bodies. No structural collapse or cortical retropulsion. Bilateral glenohumeral and acromioclavicular degenerative arthropathy. Right infraspinatus intramuscular lipoma. Bilateral breasts have tiny nodular densities. Scanned upper abdominal cuts show a left hepatic lobe segment IV subscapular bilocular hypodense cyst measuring about 2.8 x 3.2 cm. Left renal small hypodense cortical cyst. IMPRESSION: 1. Large hiatus hernia containing the gastric fundus and body. No gastric volvulus or obstruction. 2. No pulmonary masses, consolidations or cavitary changes. 3. Right upper and bilateral lower lobes as well as lingular calcified pulmonary nodules with calcified bilateral hilar and sub-carinal lymph nodes, likely post granulomatous infection sequel. 4. Bilateral pulmonary atelectatic plates with surrounding patchy parenchymal veiling, likely post-infectious changes. 5. No evidence of acute fractures. Electronically Signed by: Yoselin Mir MD. (05/26/2023 02:51:24 EST)
--- NOTE | 2023-05-26 09:12 | XRAY ---
Indication: Loss of consciousness. Status post fall. Multiple contiguous axial images obtained through the head without contrast. Comparison: October 10, 2006 Progressive age-appropriate global atrophy with stable small remote infarct right cerebellum. New findings including moderate periventricular degenerative micro-ischemia bilaterally, small remote infarct right posterior parietal lobe, remote lacunar infarct right basal ganglia, and remote lacunar infarct left external capsule. No acute intracranial hemorrhage, hydrocephalus, or mass effect. Fourth ventricle is midline. Bony calvarium intact. There is now near-complete opacification left middle ear and left mastoid cells presumed inflammatory. 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 New opacification left middle ear/mastoid air cells presumed inflammatory.
[2023-05-31 09:38] LABS: ALBUMIN 3.3 g/dL (3.5-5.0)
== END 2023-05-25 22:21 | disposition home or self-care (01) ==
LOC: ED 19:11
DX: R07.89 Other chest pain (principal); I11.0 Hypertensive heart disease with heart failure; I50.9 Heart failure, unspecified; Z79.01 Long term (current) use of anticoagulants; Z79.899 Other long term (current) drug therapy
CPT/HCPCS: 36000; 36415; 70450; 71250; 71260; 80053; 82550; 83605; 83880; 84484; 85025; 85379; 85610; 85730; 93005; 96374; 99284; J3010; A9270-GY

== ENCOUNTER 2023-11-02 10:56 | Emergency (ER) | payer MEDICARE, OTHER ==
[2023-11-02 11:20] VITALS: TEMP 97.7; O2SAT 94
[2023-11-02] MEDS ORDERED: SUBLIMAZE 100 MCG/2 ML ONE (11:54)
[2023-11-02] MEDS ORDERED: Zofran 4 MG/2 ML VIAL ONE (11:54)
[2023-11-02] MEDS ORDERED: Sodium Chloride 0.9% 1000 ML 1,000 ML ONE (11:55)
[2023-11-02] MEDS: Sodium Chloride 0.9% 1000 ML 1,000 ML IV SCH (11:58)
[2023-11-02] MEDS: Zofran 4 MG/2 ML VIAL IV ONE (11:59)
[2023-11-02] MEDS: SUBLIMAZE 100 MCG/2 ML IV ONE (12:00)
[2023-11-02 12:01] LABS: Absolute Neutrophil Ct (ANC) 5.55 x10^3/uL (1.4-6.9); BASOPHIL % 0.7 % (0.0-0.4); Basophil (Absolute #) 0.05 x10^3/uL (0-0.4); Eosinophil % 0.5 % (0.00-5.0); Eosinophil (Absolute #) 0.04 x10^3/uL (0-0.5); Hematocrit 48.7 % (35-47); IMMATURE GRAN # 0.03 x10^3u/L (0.00-0.03); IMMATURE GRAN % 0.4 % (0.00-0.4); Lymphocyte (Absolute #) 0.94 x10^3/uL (1.0-4.6); Lymphocytes % 12.8 % (24.0-44.0); Mean Cell Volume 96.1 fL (78-100); Mean Corpuscular Hemoglobin 27.6 pg (26-32); Mean Corpuscular Hgb Concent. 28.7 g/dL (32-36); Mean Platelet Volume 11.1 fL (7.5-11.0); Monocyte (Absolute #) 0.71 x10^3/uL (0.0-1.3); Monocytes % 9.7 % (0.0-12.0); Neutrophil % 75.9 % (36.0-66.0); Platelet Count 165 x10^3/uL (150-450); Red Blood Count 5.07 x10^6/uL (4.1-5.4); Red Cell Distribution Width 19.2 % (11.5-14.0); White Blood Count 7.3 x10^3/uL (4.0-10.5)
[2023-11-02 12:03] VITALS: PULSE 70; RESP 28
[2023-11-02 12:16] LABS: ALBUMIN 3.3 g/dL (3.5-5.0); ANION GAP 7.8 MEQ/L (5-15); BILIRUBIN,TOTAL 0.6 mg/dL (0.2-1.3); Calcium 8.5 mg/dL (8.4-10.2); Creatinine 1 0.81 mg/dL (0.52-1.04); EST GLOMERULAR FILTRATION RATE 72.9 ML/MIN; Potassium 3.2 mmol/L (3.5-5.1); Total Protein 6.4 g/dL (6.3-8.2)
--- NOTE | 2023-11-02 13:13 | XRAY ---
Indication: Abdomen pain. Constipation. Multiple contiguous axial images obtained through the abdomen and pelvis without contrast. Comparison: October 11, 2006 Lung bases now demonstrates minimal subsegmental atelectasis/scarring. Stable tiny left base calcified granuloma. No infiltrate or effusion. Heart is now borderline enlarged. Tiny subcarinal and bilateral infrahilar calcified nodes not previously included. New moderate size hiatal hernia with partial intrathoracic stomach. Noncontrasted stomach and bowel loops appear nonobstructed. Little to no colonic fecal debris. Again scattered sigmoid diverticulosis without diverticulitis. No free fluid/air. Left mid kidney demonstrates new 1.5 x 1.4 x 2.7 cm cortical hypodense lesion with petechial calcifications. Stable small hepatic cyst, appendectomy, cholecystectomy, and hysterectomy reported. Remaining liver, pancreas, spleen, adrenal glands, kidneys, ureters, and bladder are unremarkable for noncontrast exam. Worsening mild scattered aortoiliac calcifications without AAA. Osseous structures intact with now osteopenia. Progressive worsening mild/moderate degenerative changes throughout spine and new mild degenerative changes both hips. Stable moderate dextrorotoscoliosis centered at L4. Impression: 1. New moderate size hiatal hernia with partial intrathoracic stomach. No fecal stasis/obstruction. 2. New left renal indeterminate cortical hypodense lesion with microcalcifications as detailed. Finding partially visualized on CT chest May 25, [address] or MRI with contrast exam may yield further information. 3. Again chronic findings including sigmoid diverticulosis, hepatic cyst, arteriosclerotic disease, chronic bony findings, and old granulomatous disease..
[2023-11-02 14:50] LABS: Appearance Cloudy (Clear); Bacteria Many /HPF (None Seen); Bilirubin Negative (Negative); Blood Negative (Negative); Glucose, Urine Negative (Negative); Ketones Trace (Negative); Leukocyte Esterase Large (Negative); Nitrite Positive (Negative); Ph 6.5 (4.6-8.0); Protein,Urine Dip Trace (Negative); RBC 0-2 /HPF (0-5)
[2023-11-02 14:51] LABS: ADD URINE CULTURE? YES (NO); Epithelial Cells Moderate /HPF (None Seen); Hyaline Casts None Seen /LPF (0-2)
[2023-11-02] MEDS ORDERED: ROCEPHIN 2 GM/100 ML NACL 2 GM/100 ML IVPB IV ONE (15:14)
[2023-11-02] MEDS: ROCEPHIN 2 GM/100 ML NACL 2 GM/100 ML IVPB IV ONE (15:15)
[2023-11-02 15:18] LABS: Slide Review 1 YES
--- NOTE | 2023-11-02 15:20 | ERPHSYRPT ---
- History of Present Illness Time Seen by Provider: 11/02/23 11:15 Historian: patient Exam Limitations: no limitations Patient Subjective Stated Complaint: Patient c/o "bowel obstruction." States she has been having abdominal pain "for awhile." Patient unable to give onset of symptoms to nurse. Triage Nursing Assessment: Patient brought back to ER in a w/c. She is alert and oriented and anxious. Patient is rambling and talking non-stop. ARSHAD WNL. Abdomen is not tender to palpation. Skin tone normal. Physician History: 83-year-old female presented in the ER for evaluation of possible bowel obstruction. Patient reports she has been trying to have a bowel movement for the last few days and has been unsuccessful. She has been using laxative but not having any bowel movement for 4 days. Reports associated nausea but no vomiting. Does have history of hiatal hernia. Patient reports pain comes and waves, involves all over the abdomen. Does report passing gas. No fever or chills reported. Has some nausea but no vomiting. Allergies/Adverse Reactions: Sulfa (Sulfonamide Antibiotics) Allergy (Intermediate, Verified 11/02/23 11:07) Home Medications: Metoprolol Succinate 50 mg [Toprol Xl 50 MG] 50 mg PO BID 06/28/16 [History] PANTOPRAZOLE 40 mg Tablet [Protonix 40MG Tablet] 40 mg PO BID 06/28/16 [History] Albuterol Sulfate [Proair Respiclick] 90 mcg IH QID 05/25/23 [History] Dabigatran Etexilate Mesylate [Pradaxa] 150 mg PO BID 05/25/23 [History] Furosemide 20 mg [Lasix 20 mg] 20 mg PO DAILY 05/25/23 [History] Isosorbide Mononitrate 6 mg PO DAILY 05/25/23 [History] Magnesium Oxide [Magnesium] 1 tab PO DAILY 05/25/23 [History] Mirabegron [Myrbetriq] 50 mg PO DAILY 05/25/23 [History] Multivit-Min/Iron/FA/Vit K/Lut [Centrum Women 50 Plus Minis Tb] 1 each PO DAILY 05/25/23 [History] Vit A/Vit C/Vit E/Zinc/Copper [Preservision Areds Tablet] 1 each PO BID 05/25/23 [History] Escitalopram Oxalate [Lexapro] 10 mg PO DAILY 11/02/23 [History] Hx Tetanus, Diphtheria Vaccination/Date Given: No Hx Influenza Vaccination/Date Given: Yes Hx Pneumococcal Vaccination/Date Given: Yes Immunizations Up to Date: Yes Travel Risk - International Travel Have you traveled outside of the country in past 3 weeks: No - Emerging Infectious Disease Are you exhibiting symptoms associated with any current EIDs: Yes Symptoms: Abdominal Pain - Review of Systems Constitutional: No Symptoms Ears, Nose, & Throat: No Symptoms Respiratory: No Symptoms Cardiac: No Symptoms Abdominal/Gastrointestinal: Abdominal Pain, Nausea, Constipation Genitourinary Symptoms: No Symptoms Musculoskeletal: No Symptoms Skin: No Symptoms Neurological: No Symptoms Psychological: Anxiety Endocrine: No Symptoms Immunological/Allergic: No Symptoms - Past Medical History Pertinent Past Medical History: Yes Neurological History: No Pertinent History ENT History: No Pertinent History Cardiac History: Congestive Heart Failure, Hypertension Respiratory History: COPD Endocrine Medical History: No Pertinent History Musculoskeletal History: No Pertinent History GI Medical History: Diverticulitis, GERD, Gallbladder Disease, Hernia History: Other Psycho-Social History: Anxiety, Depression Female Reproductive Disorders: No Pertinent History Other Medical History: kidney stones - Past Surgical History Past Surgical History: Yes Neuro Surgical History: No Pertinent History Cardiac: No Pertinent History Respiratory: No Pertinent History Gastrointestinal: Appendectomy, Cholecystectomy Genitourinary: Other Musculoskeletal: No Pertinent History Female Surgical History: Hysterectomy Other Surgical History: kidney stones - Social History Smoking Status: Never smoker Exposure to second hand smoke: Yes Drug Use: none Patient Lives Alone: No - Nursing Vital Signs Nursing Vital Signs: Initial Vital Signs Pulse Rate 74 11/02/23 11:06 Respiratory Rate 26 H 11/02/23 11:06 Blood Pressure 134/71 11/02/23 11:06 O2 Sat by Pulse Oximetry 96 11/02/23 11:06 Pain Scale Pain Intensity 0 - Physical Exam General Appearance: no apparent distress, alert Ears, Nose, Throat Exam: normal ENT inspection Neck Exam: normal inspection, supple, full range of motion Respiratory Exam: normal breath sounds, lungs clear Cardiovascular Exam: regular rate/rhythm, normal heart sounds Gastrointestinal/Abdomen Exam: soft, normal bowel sounds, tenderness (Mild generalized tenderness with good bowel sounds in all 4 quadrants. No guarding or rebound tenderness) Back Exam: normal inspection Extremity Exam: normal inspection, normal range of motion Neurologic Exam: alert, oriented x 3, cooperative, No depressed mood/affect (Anxious) Skin Exam: normal color SpO2 Interpretation: normal SpO2: 94 O2 Delivery: Room Air Ordered Tests: Active Orders 24 hr Category Date Time Status IV Insertion STAT Care 11/02/23 11:18 Active NPO (ED) STAT Care 11/02/23 11:18 Active ABDOMEN AND PELVIS W/0 CONTRAS [CT] Stat Exams 11/02/23 11:18 Completed CBC W DIFF Stat Lab 11/02/23 11:45 Completed CMP Stat Lab 11/02/23 11:45 Completed CULTURE,URINE Stat Lab 11/02/23 14:03 Received LIPASE Stat Lab 11/02/23 11:45 Completed TROPONIN Q4H Lab 11/02/23 11:45 Completed TROPONIN Q4H Lab 11/02/23 15:30 Ordered TROPONIN Q4H Lab 11/02/23 19:30 Ordered UA W/RFX UR CULTURE Stat Lab 11/02/23 14:03 Completed Medication Summary Generic Name Dose Route Start Last Admin Trade Name Freq PRN Reason Stop Dose Admin Sodium Chloride 1,000 mls @ 100 mls/hr 11/02/23 11:30 11/02/23 11:58 Sodium Chloride 0.9% 1000 Ml IV 12/02/23 11:29 100 mls/hr .Q10H ARASELI Administration Ceftriaxone Sodium 2 gm in 100 mls @ 200 mls/hr 11/02/23 15:07 11/02/23 15:15 Rocephin 2 Gm/100 Ml Nacl IV 11/02/23 15:36 200 mls/hr STAT ONE 200 mls/hr Administration Discontinued Medications Generic Name Dose Route Start Last Admin Trade Name Freq PRN Reason Stop Dose Admin Fentanyl Citrate 50 mcg 11/02/23 11:18 11/02/23 12:00 Fentanyl Citrate 100 Mcg/2 Ml* Vial IV 11/02/23 11:19 50 mcg STAT ONE Administration Fentanyl Citrate Confirm 11/02/23 11:54 Fentanyl Citrate 100 Mcg/2 Ml* Vial Administered 11/02/23 11:55 Dose 100 mcg .ROUTE .STK-MED ONE Ceftriaxone Sodium Confirm 11/02/23 15:14 Rocephin 2 Gm/100 Ml Nacl Administered 11/02/23 15:15 Dose 2 gm in 100 mls @ ud IV .STK-MED ONE Ondansetron HCl 4 mg 11/02/23 11:18 11/02/23 11:59 Ondansetron Hcl 4 Mg/2 Ml Vial IV 11/02/23 11:19 4 mg STAT ONE Administration Ondansetron HCl Confirm 11/02/23 11:54 Ondansetron Hcl 4 Mg/2 Ml Vial Administered 11/02/23 11:55 Dose 4 mg .ROUTE .STK-MED ONE Lab/Rad Data: Laboratory Result Diagrams 11/02/23 11:45 11/02/23 11:45 Laboratory Results 11/02/23 11/02/23 11/02/23 Range/Units 14:03 11:45 11:45 WBC (4.0-10.5) x10^3/uL RBC (4.1-5.4) x10^6/uL Hgb (12.0-16.0) g/dL Hct (35-47) % MCV (78-100) fL MCH (26-32) pg MCHC (32-36) g/dL RDW (11.5-14.0) % Plt Count (150-450) x10^3/uL MPV (7.5-11.0) fL Gran % (36.0-66.0) % Immature Gran % (Auto) (0.00-0.4) % Nucleat RBC Rel Count (0.00-0.1) % Eos # (Auto) (0-0.5) x10^3/uL Immature Gran # (Auto) (0.00-0.03) x10^3u/L Absolute Lymphs (auto) (1.0-4.6) x10^3/uL Absolute Monos (auto) (0.0-1.3) x10^3/uL Absolute Nucleated RBC (0.00-0.01) x10^3u/L Lymphocytes % (24.0-44.0) % Monocytes % (0.0-12.0) % Eosinophils % (0.00-5.0) % Basophils % (0.0-0.4) % Absolute Granulocytes (1.4-6.9) x10^3/uL Basophils # (0-0.4) x10^3/uL Sodium 136 (135-145) mmol/L Potassium 3.2 L (3.5-5.1) mmol/L Chloride 106 (98-107) mmol/L Carbon Dioxide 25 (22-30) mmol/L Anion Gap 7.8 (5-15) MEQ/L BUN 11 (7-17) mg/dL Creatinine 0.81 (0.52-1.04) mg/dL Estimated GFR 72.9 ML/MIN Glucose 116 H (74-106) mg/dL Calcium 8.5 (8.4-10.2) mg/dL Total Bilirubin 0.60 (0.2-1.3) mg/dL AST 25 (14-36) U/L ALT 16 (0-35) U/L Alkaline Phosphatase 78 (38-126) U/L Troponin I < 0.012 (0.000-0.033) ng/mL Serum Total Protein 6.4 (6.3-8.2) g/dL Albumin 3.3 L (3.5-5.0) g/dL Lipase 115 (23-300) U/L Urine Color Yellow (Yellow) Urine Appearance Cloudy A (Clear) Urine pH 6.5 (4.6-8.0) Ur Specific [place] 1.010 (1.005-1.030) Urine Protein Trace A (Negative) Urine Glucose (UA) Negative (Negative) mg/dL Urine Ketones Trace A (Negative) Urine Blood Negative (Negative) Urine Nitrite Positive A (Negative) Urine Bilirubin Negative (Negative) Urine Urobilinogen 1.0 A (0.2) mg/dL Ur Leukocyte Esterase Large A (Negative) U Hyaline Cast (Auto) None Seen (0-2) /LPF Urine Microscopic RBC 0-2 (0-5) /HPF Urine Microscopic WBC 11-20 A (0-5) /HPF Ur Epithelial Cells Moderate A (None Seen) /HPF Urine Bacteria Many A (None Seen) /HPF Urine Culture Reflexed YES (NO) Slides for Path Review 11/02/23 Range/Units 11:45 WBC 7.3 (4.0-10.5) x10^3/uL RBC 5.07 (4.1-5.4) x10^6/uL Hgb 14.0 (12.0-16.0) g/dL Hct 48.7 H (35-47) % MCV 96.1 (78-100) fL MCH 27.6 (26-32) pg MCHC 28.7 L (32-36) g/dL RDW 19.2 H (11.5-14.0) % Plt Count 165 (150-450) x10^3/uL MPV 11.1 H (7.5-11.0) fL Gran % 75.9 H (36.0-66.0) % Immature Gran % (Auto) 0.4 (0.00-0.4) % Nucleat RBC Rel Count 0.0 (0.00-0.1) % Eos # (Auto) 0.04 (0-0.5) x10^3/uL Immature Gran # (Auto) 0.03 (0.00-0.03) x10^3u/L Absolute Lymphs (auto) 0.94 L (1.0-4.6) x10^3/uL Absolute Monos (auto) 0.71 (0.0-1.3) x10^3/uL Absolute Nucleated RBC 0.00 (0.00-0.01) x10^3u/L Lymphocytes % 12.8 L (24.0-44.0) % Monocytes % 9.7 (0.0-12.0) % Eosinophils % 0.5 (0.00-5.0) % Basophils % 0.7 (0.0-0.4) % Absolute Granulocytes 5.55 (1.4-6.9) x10^3/uL Basophils # 0.05 (0-0.4) x10^3/uL Sodium (135-145) mmol/L Potassium (3.5-5.1) mmol/L Chloride (98-107) mmol/L Carbon Dioxide (22-30) mmol/L Anion Gap (5-15) MEQ/L BUN (7-17) mg/dL Creatinine (0.52-1.04) mg/dL Estimated GFR ML/MIN Glucose (74-106) mg/dL Calcium (8.4-10.2) mg/dL Total Bilirubin (0.2-1.3) mg/dL AST (14-36) U/L ALT (0-35) U/L Alkaline Phosphatase (38-126) U/L Troponin I (0.000-0.033) ng/mL Serum Total Protein (6.3-8.2) g/dL Albumin (3.5-5.0) g/dL Lipase (23-300) U/L Urine Color (Yellow) Urine Appearance (Clear) Urine pH (4.6-8.0) Ur Specific [place] (1.005-1.030) Urine Protein (Negative) Urine Glucose (UA) (Negative) mg/dL Urine Ketones (Negative) Urine Blood (Negative) Urine Nitrite (Negative) Urine Bilirubin (Negative) Urine Urobilinogen (0.2) mg/dL Ur Leukocyte Esterase (Negative) U Hyaline Cast (Auto) (0-2) /LPF Urine Microscopic RBC (0-5) /HPF Urine Microscopic WBC (0-5) /HPF Ur Epithelial Cells (None Seen) /HPF Urine Bacteria (None Seen) /HPF Urine Culture Reflexed (NO) Slides for Path Review YES - Progress Progress: improved Progress Note: 11/02/23 15:17 83-year-old is evaluated for abdominal pain with nausea and constipation versus obstruction. Has been taking laxative with no bowel movement. Patient is very anxious. Has diffuse mild tenderness to deep palpation. Good bowel sounds in all 4 quadrants. I have given her symptomatic treatment, on reevaluation she is feeling much improved. Workup showed normal white count, fairly unremarkable chemistries except for mildly low potassium of 3.2. I have obtained CT abdomen pelvis which showed no element of constipation/obstruction. Has a small lesion in the left kidney which patient/son is advised to have outpatient follow-up with dedicated CT. I do not think this is causing her symptoms. She does have a decent sized hiatal hernia. She is taking Protonix she has UTI and given a dose of Rocephin here and will continue with Keflex to go home. Part of her symptoms are secondary to anxiety. I have discussed with patient and family in detail about the results of workup and plan of care, signs symptoms of worsening needing return to ER which they seem understanding. Stable for discharge. 11/02/23 15:21 Counseled pt/family regarding: lab results, diagnosis, need for follow-up, rad results Medical Desision Making - Independent Historian Additional History obtained from: Child - Diagnostic Testing Diagnostic test were ordered, analyzed, and reviewed by me: Yes Radiological Interpretation: Reviewed by me - Risk of complications The pt has a mod risk of morbidity or mortality based on: Need for prescription drug management - Departure Departure Disposition: Home Clinical Impression: Generalized abdominal pain, Hiatal hernia, Anxiety, Acute UTI Condition: Stable Critical Care Time: No Referrals: MAGGIE SRIVASTAVA [Primary Care Provider] - Follow up with PCP 1 day Instructions: Severe Abdominal Pain, Adult (DC), Hiatal Hernia (DC) Additional Instructions: Take Tylenol as needed. Do not take ibuprofen or any other NSAIDs. Follow-up with primary care for reevaluation. Return to ER for intractable abdominal pain, vomiting/fever chills etc. also follow-up with your primary care for outpatient further workup for his cyst/lesion in your left kidney. Prescriptions: Cephalexin Mh 500 mg [Keflex 500 mg] 500 mg PO TID #21 cap
[2023-11-02 15:38] VITALS: BP 127/79
== END 2023-11-02 16:23 | disposition home or self-care (01) ==
LOC: ED 10:56
DX: N39.0 Urinary tract infection, site not specified (principal); R10.84 Generalized abdominal pain; K44.9 Diaphragmatic hernia without obstruction or gangrene; F41.9 Anxiety disorder, unspecified; R11.0 Nausea; I11.0 Hypertensive heart disease with heart failure; I50.9 Heart failure, unspecified; Z79.899 Other long term (current) drug therapy
CPT/HCPCS: 36000; 36415; 74176; 80053; 81001; 83690; 84484; 85025; 87077; 87086; 87186; 96365; 96374; 96375; 99284; J0696; J2405; J3010